=== PATIENT | female | born 1955 | race Caucasian/White ===

== ENCOUNTER 2016-10-01 11:36 | Outpatient (CLI) ==
[2015-01-12 10:47] VITALS: BMI 44.8
[2016-10-01 13:56] LABS: ALBUMIN 3.7 g/dL (3.4-5.0); ANION GAP 14.1; BUN/CREATININE RATIO 13.25; CALCIUM 9.8 mg/dL (8.2-10.2); CREATININE 0.83 mg/dL (0.60-1.30); POTASSIUM 4.1 mmol/L (3.5-5.10)
== END 2016-10-01 11:37 | disposition home or self-care (01) ==
LOC: LAB 11:36
PROVIDERS: ATTEND General Practice
DX: E11.9 Type 2 diabetes mellitus without complications (principal); I10 Essential (primary) hypertension; E78.5 Hyperlipidemia, unspecified
CPT/HCPCS: 36415; 80069; 83036

== ENCOUNTER 2017-09-10 17:15 | Outpatient (CLI) ==
[2015-01-12 10:47] VITALS: BMI 44.8
== END 2017-09-10 17:16 | disposition home or self-care (01) ==
LOC: LAB 17:15
PROVIDERS: ATTEND General Practice
DX: J02.9 Acute pharyngitis, unspecified (principal); R05 Cough; R51 Headache
CPT/HCPCS: 87651

== ENCOUNTER 2018-07-01 11:17 | Outpatient (CLI) ==
[2015-01-12 10:47] VITALS: BMI 44.8
== END 2018-07-01 11:18 | disposition home or self-care (01) ==
LOC: RHC-LAB 11:17
PROVIDERS: ATTEND General Practice
DX: E78.5 Hyperlipidemia, unspecified (principal); E11.9 Type 2 diabetes mellitus without complications; I10 Essential (primary) hypertension; G62.9 Polyneuropathy, unspecified; D12.6 Benign neoplasm of colon, unspecified; F32.9 Major depressive disorder, single episode, unspecified; Z79.899 Other long term (current) drug therapy
CPT/HCPCS: 36415; 80053; 80061; 81001; 83036; 85025; 87086; 87186

== ENCOUNTER 2018-12-27 09:47 | Emergency (ER) | payer OTHER ==
[2018-12-27 09:51] VITALS: BP 151/61; TEMP 98; BMI 40.8
[2018-12-27] MEDS ORDERED: NORCO 10-325 PO STA (10:23)
--- NOTE | 2018-12-27 11:15 | ED.PDOC ---
General ED Provider: Dr. MESHA TORRES Chief Complaint: Shoulder Pain/Injury Stated Complaint: right soulder pain neck pain tingling sensation right upper ext since december 17 when she reached back on that day and felt a pop no new injury Time Seen by Physician: 10:00 Mode of Arrival: Walk-In Information Source: Patient Exam Limitations: No limitations [facility] Nursing and Triage Documentation Reviewed and Agree: Yes Does patient meet sepsis criteria?: No System Inflammatory Response Syndrome: Not Applicable Sepsis Protocol: For patient's 13 years and over: Temp is 96.8 and below OR 101 and greater Pulse >90 BPM Resp >20/minute Acutely Altered Mental Status Are patient's symptoms suggestive of a new infection, such as: -Pneumonia -Skin, Soft Tissue -Endocarditis -UTI -Bone, Joint Infection -Implantable Device -Acute Abdominal Infection -Wound Infection -Meningitis -Blood Stream Catheter Infection -Unknown Musculoskeletal Complaint Exam - Shoulder Pain Complaint/Exam Mechanism of Injury: Reports: Other Onset/Duration: 12 days Symptoms Are: Still present Timing: Intermittent Initial Severity: Mild Current Severity: Mild Location: Reports: Discrete, Radiating (right arm ) Character: Reports: Aching Alleviating: Reports: Rest Aggravating: Reports: Movement, Lifting, Flexion, Extension, Internal rotation, External rotation Associated Signs and Symptoms: Denies: Swelling, Redness, Bruising, Fever, Weakness, Numbness, Tingling Related History: Reports: Similar episode Non-Orthopedic Risk Factors: Reports: None DVT Risk Factors: Reports: None Related Surgical History: Reports: None Shoulder Findings: Absent: Swelling, Ecchymosis, Abnormal contour, Rotation, Ligamentous instability, Laceration, Erythema, Warmth, Blisters, Foreign body, Adson's Sign Tenderness: Present: Proximal humerus, Rotator cuff muscles Limited Range of Motion: Present: Abduction, Adduction, Flexion, Extension, Internal rotation, External rotation, Rotator cuff muscles, Rotator cuff insertion Differential Diagnoses: Arthritis, Closed Fracture, Rotator Cuff Injury Review of Systems - Review Of Systems Constitutional: Reports: No symptoms Eyes: Reports: No symptoms Ears, Nose, Mouth, Throat: Reports: No symptoms Respiratory: Reports: No symptoms Cardiac: Reports: No symptoms GI: Reports: No symptoms : Reports: No symptoms Musculoskeletal: Reports: Joint pain, Neck pain Skin: Reports: No symptoms Neurological: Reports: No symptoms Endocrine: Reports: No symptoms Hematologic/Lymphatic: Reports: No symptoms All Other Systems: Reviewed and Negative Past Medical History - Past Medical History Previously Healthy: Yes Endocrine: Reports: Dyslipidemia Cardiovascular: Reports: Hypertension Respiratory: Reports: None Hematological: Reports: None Gastrointestinal: Reports: None Genitourinary: Reports: None Neuro/Psych: Reports: None Musculoskeletal: Reports: None Cancer: Reports: None Last Menstrual Period: n/a - Surgical History General Surgical History: Reports: None - Family History Family History: Reports: None - Social History Smoking Status: Current every day smoker, Former smoker Hx Substance Use: No Alcohol Screening: None Physical Exam - Physical Exam Appearance: Well-appearing, No pain distress, Well-nourished Eyes: ROMEL, EOMI, Conjunctiva clear ENT: Ears normal, Nose normal, Oropharynx normal Respiratory: Airway patent, Breath sounds clear, Breath sounds equal, Respirations nonlabored Cardiovascular: RRR, Pulses normal, No rub, No murmur GI/: Soft, Nontender, No masses, Bowel sounds normal, No Organomegaly Musculoskeletal: No edema, No calf tenderness, Limited ROM (right shoulder . sensation circulation of the right upper ext is wnl ) Skin: Warm, Dry, Normal color Neurological: Sensation intact, Motor intact, Reflexes intact, Cranial nerves intact, Alert, Oriented Psychiatric: Affect appropriate, Mood appropriate Critical Care Note - Critical Care Note Total Time (mins): 0 Course - Course Orders, Labs, Meds: Orders Category Date Time Status Hydrocodone Bit/Acetaminophen [[place] 10-325] MEDS 12/27/18 10:23 Discontinued 1 tab PO ONCE STA CT CERVICAL SPINE W/O CONTRAST Stat RADS 12/27/18 10:[address] SHOULDER RIGHT W/O CONTRAST Stat RADS 12/27/18 10:22 Taken Medications Discontinued Medications Generic Name Dose Route Start Last Admin Trade Name Freq PRN Reason Stop Dose Admin Hydrocodone Bitart/Acetaminophen 1 tab 12/27/18 10:23 12/27/18 10:34 [place] 10-325 PO 12/27/18 10:24 1 tab ONCE STA Administration Vital Signs: Temp Pulse Resp BP Pulse Ox 12/27/18 09:47 98.0 F 65 20 151/61 H 95 Departure - Departure Time of Disposition: 12:00 Disposition: HOME SELF-CARE Discharge Problem: Shoulder pain, Neck pain, Radiculopathy of cervical spine Instructions: Neck Pain (ED), Cervical Radiculopathy (ED), Shoulder Sprain (ED) , Rotator Cuff Injury (ED) Condition: Good Pt referred to PMD for follow-up: No IPMP verified?: No Additional Instructions: Please call your Family Physician as soon as possible to schedule a follow-up appointment. Allergies/Adverse Reactions: Allergies No Known Allergies Allergy (Verified 12/27/18 09:51) Home Medications: Ambulatory Orders Atenolol 100 mg PO DAILY 01/12/15 Atorvastatin Calcium [Lipitor] 40 mg PO DAILY 01/12/15 Hydrochlorothiazide 25 mg PO DAILY 01/12/15 Hydrocodone Bit/Acetaminophen [[place] 10-325] 1 each PO Q6HR #7 tablet 12/27/18 Disposition Discussed With: Patient
--- NOTE | 2018-12-27 11:21 | CT ---
EXAM: CT of the right shoulder without contrast History: Right shoulder pain. Technique: Multiplanar CT images through the right shoulder were obtained without the administration of IV contrast Findings: The visualized right lung is clear. Surrounding soft tissues demonstrate no grossly acute findings. No acute fracture or dislocation. Moderate to severe narrowing of the right AC joint with marginal s clerosis and osteophyte formation. Mild to moderate narrowing of the right glenohumeral joint with s mall osteophytes. No abnormal calcifications or radiopaque foreign bodies. Impression: 1. No acute osseous abnormality. 2. Moderate to severe osteoarthritis of the right AC joint and mild to moderate osteoarthritis of th e right glenohumeral joint
--- NOTE | 2018-12-27 11:28 | CT ---
Exam: CT cervical spine HISTORY: Pain and radiculopathy into the right arm. Reaching behind and heard a pop, pain in the ne ck and right shoulder since. Procedures: 2 mm contiguous axial images were obtained through the cervical spine without the use of contrast. Sagittal and coronal reformatted images were also created and reviewed. Findings: The cervical spine is in approximate anatomic alignment. There is mild multilevel degener ative disc and facet arthropathy with no acute fracture or listhesis. No osseous erosion or radioden se foreign body. The mastoid air cells and the visualized portions of the paranasal sinuses appear n ormally aerated. Subcentimeter lymph nodes are noted throughout the neck soft tissues, without pedro lymphadenopathy. The thyroid gland demonstrates a small coarse calcifications. Limited visualizati on of the lung apices demonstrates no pneumothorax. There is no paraspinal fluid collection. Indivi dual disc levels are evaluated as follows At C2-3 there is a mild disc bulge without central canal stenosis. Mild neural foraminal stenosis is noted on the left. At C3-4 there is a broad-based disc bulge which reduces the AP diameter of the spinal canal to 9 mm. Moderate neural foraminal stenosis is noted on the left with mild neural foraminal stenosis on the r ight. At C4-5 there is a mild disc bulge without central canal stenosis. Moderate neural foraminal stenosi s is noted on the left. At C5-6 there is a minimal disc marginal osteophyte complex without central canal stenosis or signifi cant neural foraminal stenosis. At C6-7 there is a minimal disc bulge without central spinal canal stenosis or significant neural for aminal stenosis. At C7-T1 there is a minimal disc marginal osteophyte complex without central canal stenosis or signif icant neural foraminal stenosis. Impressions: No acute fracture or listhesis in the cervical spine. Multilevel mild degenerative disc and facet arthropathy. Osseous fusion of the left C4 and C5 facets . Mild central canal stenosis to approximately 9 mm at the C3-4 level. Moderate neural foraminal stenosis on the left at C3-4 and C4-5. Mild neural foraminal stenosis on the left at C2-3 and right at C3-4. Given the history of radiculopathy, recommendation is MRI of the cervical spine to evaluate for poten tial neural impingement. Findings were faxed to the emergency department at 11:15 a.m.
== END 2018-12-27 12:04 | disposition home or self-care (01) ==
LOC: ED 09:47
DX: M25.511 Pain in right shoulder (principal); M54.2 Cervicalgia; Z72.0 Tobacco use; M54.12 Radiculopathy, cervical region
CPT/HCPCS: 99283

== ENCOUNTER 2019-02-21 09:36 | Outpatient (CLI) | payer OTHER | END 2019-02-21 09:37 | disposition home or self-care (01) | LOC: RHC-LAB 09:36 | PROVIDERS: ATTEND General Practice | DX: Z12.31 Encounter for screening mammogram for malignant neoplasm of breast (principal); F32.9 Major depressive disorder, single episode, unspecified; E78.5 Hyperlipidemia, unspecified; I10 Essential (primary) hypertension; G62.9 Polyneuropathy, unspecified; E11.9 Type 2 diabetes mellitus without complications; Z79.899 Other long term (current) drug therapy | CPT/HCPCS: 36415; 80053; 80061; 81001; 83036; 84443; 85025; 87086 ==

== ENCOUNTER 2019-02-21 10:13 | Outpatient (CLI) | END 2019-02-21 10:14 | disposition home or self-care (01) | LOC: RAD 10:13 | PROVIDERS: ATTEND General Practice | DX: Z12.31 Encounter for screening mammogram for malignant neoplasm of breast (principal); F32.9 Major depressive disorder, single episode, unspecified; E78.5 Hyperlipidemia, unspecified; I10 Essential (primary) hypertension; G62.9 Polyneuropathy, unspecified; E11.9 Type 2 diabetes mellitus without complications; Z79.899 Other long term (current) drug therapy | CPT/HCPCS: 36415; 80053; 80061; 81001; 83036; 84443; 85025; 87086 ==

== ENCOUNTER 2024-08-20 12:18 | Observation (INO) ==
--- NOTE | 2024-08-20 13:13 | ED.PDOC ---
General ED Provider: Dr. ANDREEA WALTON MD Chief Complaint: Dizziness Stated Complaint: 69 yo WF complains of dizziness this AM, "swimming" and some last week. [place] her glucose may be elevated and came into ER. Was hypotensive in ER. Had some "chest cold" for a week or so. Slight SOB. No chest pain. No fever. Slight headache. She did vomited once enroute to ER and had diarrhea this AM. No rectal bleeding. Hx of DM, HTN, COPD and stent in her heart, kidney and "abdomen" in the past. Former heavy smoker. Time Seen by Provider: 08/20/24 12:56 Mode of Arrival: Walk-In Information Source: Patient Exam Limitations: No limitations Primary Care Provider: ALICJA TUCKER APRN, FNPBC Referred to ED by: Other (self) Nursing and Triage Documentation Reviewed and Agree: Yes What is Opioid Naive?: *Opioid Naive implies the patient is not already taking opioids or not chronically receiving opioids on a daily basis. *PRN dosing is not "usually" associated with tolerance. *Patients are at higher risk of over-sedation and aspiration. What is Opioid Tolerant?: *Opioid Tolerance implies less than the expected response to an opioid. *Acquired tolerance is defined by the patient taking 60mg of oral morphine daily (or equianalgesic dose of another opioid) for 1 week or more. *Often associated with chronic pain. *May take more than usual dose to achieve desired pain control. Review of Systems Review Of Systems Constitutional: Reports Malaise, Weakness and Sweats; Denies Chills or Fever Eyes: Reports No symptoms Ears, Nose, Mouth, Throat: Reports Nose discharge Respiratory: Reports Cough and Shortness of Breath Cardiac: Reports No symptoms GI: Reports Diarrhea and Vomiting; Denies Abdominal pain or Rectal bleeding : Reports No symptoms Musculoskeletal: Denies Back pain Skin: Reports No symptoms Neurological: Reports Other (some dizziness, "swimming" ) [facility] Medical History (Updated 08/20/24 @ 17:11 by ANDREEA WALTON MD) Left renal artery stenosis I70.1 - Atherosclerosis of renal artery (ICD-10) Iliac artery stenosis, bilateral I77.1 - Stricture of artery (ICD-10) Obese E66.9 - Obesity, unspecified (ICD-10) Non-insulin dependent type 2 diabetes mellitus Will collect insulin level as well E11.9 - Type 2 diabetes mellitus without complications (ICD-10) Social History Smoking and tobacco status: Former smoker Quit date: 08/25/19 Passive smoking exposure: No Second hand smoke exposure: No Smoking risk assessment performed: No Alcohol intake: never Counseling given: No Substance use type: does not use Counseling given: No Household members: none Housing: house Lives independently: Yes Pets and animals: No History of recent travel: No Do you think of yourself as: straight/heterosexual Current gender identity: female Seatbelt use: always Working smoke detector in home: Yes Fire extinguisher in home: Yes Surgical History History of colonoscopy Mario Carol Ann on 11/10/2005 Z98.89 - Other specified postprocedural states (ICD-10) History of musculoskeletal system surgery Z98.890 - Other specified postprocedural states (ICD-10) Placement of stent Status post cholecystectomy Z90.49 - Acquired absence of other specified parts of digestive tract (ICD- 10) History of section 29 yrs ago with first child Z98.891 - History of uterine scar from previous surgery (ICD-10) Female Reproductive History Menstrual Hx Hysterectomy: No Hx Tubal Ligation: No Physical Exam Physical Exam Appearance: Reports Ill-appearing, No pain distress and Obese Ill-appearing: Moderate Pain Distress: None Eyes: Reports ROMEL and EOMI ENT: Reports Nose normal and Oropharynx normal Neck: Supple Respiratory: Reports Airway patent, Breath sounds clear and Breath sounds equal Cardiovascular: Reports RRR, Pulses normal and No rub GI/: Reports Soft, Nontender, No masses and Bowel sounds normal Musculoskeletal: Reports Normal strength, ROM intact, No edema and No calf tenderness Skin: Reports Warm and Normal color Neurological: Reports Sensation intact, Motor intact and Reflexes intact Psychiatric: Reports Affect appropriate and Mood appropriate Interpretation EKG Interpretation EKG Interpretation By: ED Physician Time of EKG #1: 13:30 Rate: Normal Rhythm: Sinus Ectopy: None [place]: NL ST Segment: Normal Interpretation: Normal EKG Course Course 08/20/24 13:36 08/20/24 13:36 Orders, Labs, Meds: Lab Review 08/20/24 08/20/24 08/20/24 13:36 15:17 16:08 WBC 12.94 H RBC 4.62 Hgb 13.4 Hct 44.5 MCV 96.3 MCH 29.0 MCHC 30.1 L RDW Coeff of Maren 13.8 Plt Count 243 Immature Gran % (Auto) 0.3 Neut % (Auto) 69.4 Lymph % (Auto) 23.2 [place] % (Auto) 6.2 Eos % (Auto) 0.6 Baso % (Auto) 0.3 Neut # (Auto) 9.0 H Lymph # (Auto) 3.0 [place] # (Auto) 0.8 Eos # (Auto) 0.1 Baso # (Auto) 0.0 Immature Gran # (Auto) 0.0 Sodium 137.1 Potassium 4.51 Chloride 102.7 Carbon Dioxide 19.5 L Anion Gap 19.41 BUN 30.2 H Creatinine 2.00 H Estimated GFR (MDRD) 25.00 BUN/Creatinine Ratio 15.10 Glucose 251.5 H Lactic Acid 4.96 H Calcium 9.15 Magnesium 1.94 Total Bilirubin 0.71 AST 23.8 ALT 22.6 Alkaline Phosphatase 109.0 Troponin I < 0.012 Total Protein 7.04 Albumin 4.03 Globulin 3.01 Albumin/Globulin Ratio 1.33 Procalcitonin 0.08 Urine Color Yellow Urine Clarity Clear Urine pH 5.0 Ur Specific [place] 1.025 Urine Protein 3+ H Urine Glucose (UA) Trace H Urine Ketones 1+ H Urine Blood Negative Urine Nitrite Negative Urine Bilirubin 1+ H Urine Urobilinogen 0.2 Ur Leukocyte Esterase Negative Ur Squamous Epith Cells 2-5 SARS CoV-2 RNA Rapid ASHER Negative 08/20/24 16:55 WBC RBC Hgb Hct MCV MCH MCHC RDW Coeff of [place] Plt Count Immature Gran % (Auto) Neut % (Auto) Lymph % (Auto) [place] % (Auto) Eos % (Auto) Baso % (Auto) Neut # (Auto) Lymph # (Auto) [place] # (Auto) Eos # (Auto) Baso # (Auto) Immature Gran # (Auto) Sodium Potassium Chloride Carbon Dioxide Anion Gap BUN Creatinine Estimated GFR (MDRD) BUN/Creatinine Ratio Glucose Lactic Acid 2.08 D Calcium Magnesium Total Bilirubin AST ALT Alkaline Phosphatase Troponin I Total Protein Albumin Globulin Albumin/Globulin Ratio Procalcitonin Urine Color Urine Clarity Urine pH Ur Specific [place] Urine Protein Urine Glucose (UA) Urine Ketones Urine Blood Urine Nitrite Urine Bilirubin Urine Urobilinogen Ur Leukocyte Esterase Ur Squamous Epith Cells SARS CoV-2 RNA Rapid ASHER Orders Category Date Time Status ADMIT OBSERVATION [PLACE PATIENT OBSERVATION] .TO ADMISSION 08/20/24 17:11 Completed MEDSURG (MONITORED BED) EKG-(ED ONLY) Stat CARDIO 08/20/24 13:06 Completed BLOOD GLUCOSE MONITORING (MED/SURG) 0630,1100,1700,2100 CARE 08/20/24 16:46 Active GIVE HS SNACK 2100 CARE 08/20/24 16:46 Active INTAKE & OUTPUT Q8HR CARE 08/20/24 16:45 Active REMINDER: Give Insulin if Needed 0630,1100,1700,2100 CARE 08/20/24 16:45 Active TELEMETRY MONITORING TELE CARE 08/20/24 17:12 Active VITAL SIGNS Q1HR CARE 08/20/24 16:45 Active ADA 1800 EMRE. DIET DIETARY 08/20/24 Dinner Ordered HS SNACK DIETARY 08/20/24 Dinner Ordered BLOOD CULTURE (ED ONLY) Stat LAB 08/20/24 13:49 Ordered CBC W/ AUTO DIFF DAILY@0600 LAB 08/21/24 06:00 Ordered CBC W/ AUTO DIFF DAILY@0600 LAB 08/22/24 06:00 Ordered CBC W/ AUTO DIFF Stat LAB 08/20/24 13:36 Completed CMP [COMPREHENSIVE METABOLIC PANEL] Stat LAB 08/20/24 13:36 Completed COMPREHENSIVE METABOLIC PANEL DAILY@0600 LAB 08/21/24 06:00 Ordered COMPREHENSIVE METABOLIC PANEL DAILY@0600 LAB 08/22/24 06:00 Ordered COVID [SARS COV-2 RNA RAPID ASHER] Stat LAB 08/20/24 16:08 Completed LACTIC ACID Stat LAB 08/20/24 13:36 Completed LACTIC ACID Stat LAB 08/20/24 16:55 Completed MAGNESIUM Stat LAB 08/20/24 13:36 Completed PROCALCITONIN Stat LAB 08/20/24 13:36 Completed RESPIRATORY PANEL 2.1 (PCR) Stat LAB 08/20/24 17:50 Ordered TROPONIN I Stat LAB 08/20/24 13:36 Completed URINALYSIS C & S IF INDICATED Stat LAB 08/20/24 15:17 Completed Acetaminophen [Tylenol] Meds 08/20/24 16:45 Active 650 mg PO Q4H PRN Insulin Regular, Human [Humulin R (10Ml)] Meds 08/20/24 16:45 Active See Protocol SUBCUT PRN PRN Ondansetron HCl/Pf [Zofran Sdv] Meds 08/20/24 15:42 Discontinued 4 mg IVP ONCE ONE Piperacillin Sodium/Tazobactam [Zosyn 3.375 gm] 3.375 Meds 08/20/24 14:32 Discontinued gm 0.9 % Sodium Chloride [Sodium Chloride 100Ml] 100 ml IV ONCE Sodium Chloride 0.9% [Sodium Chloride] 1,000 ml Meds 08/20/24 17:00 Active IV 125 mls/hr Sodium Chloride 0.9% [Sodium Chloride] 1,000 ml Meds 08/20/24 13:06 Discontinued IV BOLUS Sodium Chloride 0.9% [Sodium Chloride] 1,000 ml Meds 08/20/24 14:32 Discontinued IV BOLUS CHEST, 1V AP ONLY Stat RADS 08/20/24 13:06 Completed Medications Generic Name Dose Route Start Last Admin Trade Name Freq PRN Reason Stop Dose Admin Acetaminophen 650 mg 08/20/24 16:45 Acetaminophen 325 Mg Tablet PO Q4H PRN Mild Pain Sodium Chloride 1,000 mls @ 125 mls/hr 08/20/24 17:00 Sodium Chloride IV .Q8H ANGELIQUE Insulin Human Regular 0 unit 08/20/24 16:45 Insulin Regular, Human 100 Unit/Ml (10ml) Vial SUBCUT PRN PRN Hyperglycemia Protocol Discontinued Medications Generic Name Dose Route Start Last Admin Trade Name Freq PRN Reason Stop Dose Admin Sodium Chloride 1,000 mls @ 1,000 mls/hr 08/20/24 13:06 08/20/24 14:40 Sodium Chloride IV 08/20/24 14:05 Infused BOLUS ONE Infusion Piperacillin Sod/Tazobactam 100 mls @ 200 mls/hr 08/20/24 14:32 08/20/24 14:50 Sod 3.375 gm/ Sodium Chloride IV 08/20/24 15:01 200 mls/hr ONCE ONE Administration Sodium Chloride 1,000 mls @ 1,000 mls/hr 08/20/24 14:32 08/20/24 14:51 Sodium Chloride IV 08/20/24 15:31 1,000 mls/hr BOLUS ONE Administration Ondansetron HCl 4 mg 08/20/24 15:42 08/20/24 16:24 Ondansetron Hcl/Pf 4 Mg/2 Ml Sdv IVP 08/20/24 15:43 4 mg ONCE ONE Administration Vital Signs: Temp Pulse Resp BP Pulse Ox 08/20/24 12:32 97.2 F L 64 18 78/41 L 96 Physician Progress Note: Discussed case the hospitalist, Juan R, and will admit OBS. Antibiotic given and had at least a couple of liters of IV Fluid. Discharge Plan Discharge Patient Disposition: PLACED OBSERVATION Discharge Problem: Acute kidney injury, Hypotensive episode, Hyperglycemia Did you review [place] for ALL controlled substances?: Not Applicable ED Provider: ANDREEA WALTON Condition: Fair [place] Coma Scale Essie Coma Scale Response Scores: Best Response = 15 Comatose Client = 8 or Less Totally Unresponsive = 3
[2024-08-20] MEDS: SODIUM CHLORIDE 1,000 ML IV ONE ×2 (13:15→14:51)
[2024-08-20 13:39] LABS: BASOPHILS % (AUTO) 0.3 % (0.0-3.0); EOSINOPHILS # (AUTO) 0.1 K/ul (0.0-0.7); EOSINOPHILS % (AUTO) 0.6 % (0.0-7.0); HEMATOCRIT 44.5 % (37.0-47.0); HEMOGLOBIN 13.4 g/dl (12.0-16.0); IMMATURE GRANULOCYTE % (AUTO) 0.3 % (0.0-5.0); LYMPHOCYTES % (AUTO) 23.2 (10.0-50.0); MEAN CORPUSCULAR HGB CONC 30.1 (31.8-35.4); MEAN CORPUSCULAR VOLUME 96.3 fl (81.0-99.0); MONOCYTES # (AUTO) 0.8 K/uL (0.4-2.0); MONOCYTES % (AUTO) 6.2 (0-10); NEUTROPHILS % (AUTO) 69.4 % (42.2-75.2); PLATELET COUNT 243 10^3/uL (140-440); RDW COEFFICIENT OF VARIATION 13.8 % (11.6-14.8); RED BLOOD COUNT 4.62 10^6/ul (4.20-5.40); WHITE BLOOD COUNT 12.94 K/ul (4.6-10.2)
[2024-08-20 13:59] LABS: ALANINE AMINOTRANSFERASE 22.6 U/L (0-35); ALBUMIN 4.03 g/dL (3.5-5.0); ASPARTATE AMINO TRANSFERASE 23.8 U/L (14-36); BILIRUBIN,TOTAL 0.71 mg/dL (0.2-1.3); BLOOD UREA NITROGEN 30.2 mg/dL (7-17); CALCIUM 9.15 mg/dL (8.4-10.2); CARBON DIOXIDE 19.5 mmol/L (22-30.0); CHLORIDE 102.7 mmol/L (98-107); GLUCOSE 251.5 mg/dL (74-106); MAGNESIUM 1.94 mg/dL (1.6-2.3); POTASSIUM 4.51 mmol/L (3.5-5.1); SODIUM 137.1 mmol/L (134.5-145); TOTAL PROTEIN 7.04 g/dL (6.3-8.2)
[2024-08-20 14:30] LABS: TROPONIN I < 0.012 ng/ml (0.0000-0.120)
--- NOTE | 2024-08-20 14:49 | DI ---
EXAM: FRONTAL VIEW OF THE CHEST. HISTORY: Hypotension. COMPARISON: Chest radiograph 05/29/2023. FINDINGS: Atherosclerotic calcifications of the aorta. Normal heart size. Chronic asymmetric elevation of the right hemidiaphragm. No acute airspace consolidation. No visible pleural effusion or pneumothorax. No acute osseous abnormality. Degenerative changes of the spine and shoulders. Mild dextroconvex tho racic spinal curvature. IMPRESSION: No acute finding in the chest. Chronic asymmetric elevation right hemidiaphragm. Calcified atherosclerosis.
[2024-08-20] MEDS: ZOSYN 3.375 GM 3.375 GM in SODIUM CHLORIDE 100ML 100 ML IV ONE (14:50)
[2024-08-20 15:25] LABS: BILIRUBIN,URINE 1+ (NEGATIVE); CLARITY,URINE Clear (CLEAR); COLOR,URINE Yellow (YELLOW); GLUCOSE, URINE (UA) Trace (NEGATIVE); KETONES,URINE 1+ (NEGATIVE); LEUKOCYTE ESTERASE ,URINE Negative (NEGATIVE); NITRITE,URINE Negative (NEGATIVE); PROTEIN,URINE 3+ (NEGATIVE); URINE, BLOOD Negative (NEGATIVE); UROBILINOGEN,URINE 0.2 (0.2)
[2024-08-20] MEDS: ZOFRAN SDV IVP ONE (16:24)
[2024-08-20 16:33] LABS: SARS COV-2 RNA RAPID NAAT NEGATIVE (NEGATIVE)
[2024-08-20 17:55] LABS: BORDETELLA PARAPERTUSSIS (PCR) NOT DETECTED (NOT DETECT); BORDETELLA PERTUSSIS (PCR) NOT DETECTED (NOT DETECT); CHLAMYDIA PNEUMONIAE (PCR) NOT DETECTED (NOT DETECT); CORONAVIRUS 229E (PCR) NOT DETECTED (NOT DETECT); CORONAVIRUS HKU1 (PCR) NOT DETECTED (NOT DETECT); CORONAVIRUS NL63 (PCR) NOT DETECTED (NOT DETECT); CORONAVIRUS OC43 (PCR) NOT DETECTED (NOT DETECT); HUMAN METAPNEUMOVIRUS (PCR) NOT DETECTED (NOT DETECT); INFLUENZA B (PCR) NOT DETECTED (NOT DETECT); MYCOPLASMA PNEUMONIAE (PCR) NOT DETECTED (NOT DETECT); PARAINFLUENZA VIRUS 1 (PCR) NOT DETECTED (NOT DETECT); PARAINFLUENZA VIRUS 2 (PCR) NOT DETECTED (NOT DETECT); PARAINFLUENZA VIRUS 3 (PCR) NOT DETECTED (NOT DETECT); PARAINFLUENZA VIRUS 4 (PCR) NOT DETECTED (NOT DETECT); RESPIRATORY SYNCYTIAL V (PCR) NOT DETECTED (NOT DETECT); SARS_COV_2 (PCR) NOT DETECTED (NOT DETECT)
[2024-08-20] MEDS: SODIUM CHLORIDE 1,000 ML IV SCH (18:03)
[2024-08-20] MEDS: HUMULIN R (10ML) SUBCUT PRN (18:12)
[2024-08-20 18:20] VITALS: BMI 44.8
[2024-08-20 18:45] LABS: ADENOVIRUS (PCR) NOT DETECTED (NOT DETECT); HUMAN RHINOVIRUS/ENTEROV (PCR) DETECTED (NOT DETECT)
[2024-08-20] MEDS ORDERED: NEURONTIN PO PRN (20:09)
[2024-08-20] MEDS ORDERED: VENTOLIN HFA IH PRN (20:09)
[2024-08-20] MEDS: SYMBICORT 160-4.5 MCG INHALER IH SCH (21:35)
[2024-08-21 05:24] LABS: BASOPHILS % (AUTO) 0.3 % (0.0-3.0); EOSINOPHILS # (AUTO) 0.1 K/ul (0.0-0.7); EOSINOPHILS % (AUTO) 0.7 % (0.0-7.0); HEMATOCRIT 40.5 % (37.0-47.0); HEMOGLOBIN 12.1 g/dl (12.0-16.0); IMMATURE GRANULOCYTE % (AUTO) 0.3 % (0.0-5.0); LYMPHOCYTES # (AUTO) 2.5 K/uL (0.60-3.4); MEAN CORPUSCULAR HEMOGLOBIN 28.9 pg (27.0-31.0); MEAN CORPUSCULAR HGB CONC 29.9 (31.8-35.4); MEAN CORPUSCULAR VOLUME 96.9 fl (81.0-99.0); MONOCYTES # (AUTO) 0.6 K/uL (0.4-2.0); MONOCYTES % (AUTO) 6.1 (0-10); NEUTROPHILS # (AUTO) 6.3 K/ul (2.0-6.9); NEUTROPHILS % (AUTO) 66.6 % (42.2-75.2); PLATELET COUNT 204 10^3/uL (140-440); RDW COEFFICIENT OF VARIATION 13.9 % (11.6-14.8); RED BLOOD COUNT 4.18 10^6/ul (4.20-5.40); WHITE BLOOD COUNT 9.44 K/ul (4.6-10.2)
[2024-08-21 05:40] LABS: ALANINE AMINOTRANSFERASE 20.2 U/L (0-35); ALBUMIN 3.31 g/dL (3.5-5.0); ASPARTATE AMINO TRANSFERASE 22.4 U/L (14-36); BILIRUBIN,TOTAL 0.29 mg/dL (0.2-1.3); BLOOD UREA NITROGEN 32.6 mg/dL (7-17); CALCIUM 8.36 mg/dL (8.4-10.2); CARBON DIOXIDE 23.8 mmol/L (22-30.0); GLUCOSE 202.2 mg/dL (74-106); POTASSIUM 4.19 mmol/L (3.5-5.1); SODIUM 138.7 mmol/L (134.5-145); TOTAL PROTEIN 6.27 g/dL (6.3-8.2)
[2024-08-21 05:50] LABS: CREATININE 1.42 mg/dL (0.60-1.30)
[2024-08-21] MEDS: TYLENOL PO PRN (08:08)
[2024-08-21] MEDS: PLAVIX PO SCH (08:10)
[2024-08-21] MEDS: CELEXA PO SCH (08:10)
[2024-08-21] MEDS: LIPITOR PO SCH (08:11)
[2024-08-21] MEDS: SPIRIVA IH SCH (08:17)
[2024-08-21] MEDS: NEURONTIN PO PRN ×2 (08:18)
--- NOTE | 2024-08-21 12:56 | PCM ---
Date of Service Date Seen by Provider: 08/21/24 Time Seen by Provider: 08:30 Admit Day/Time Admission Date: 08/20/24 Reason for Admission Chief Complaint: Orthostatic Hypotension Hospital Provider Hospital Provider: TARCY FULLER, [facility] Primary Care Physician Primary Care Physician: ALICJA TUCKER APRN,[facility] History of Present Illness History of Present Illness: 69 yo female with pmh of HTN, HLD, DM2, and COPD presented to the ER with complaints of dizziness. States she has had intermittent dizziness on standing over the past 2 weeks. Reports it was initially occurring when she stood up and then would resolve. Yesterday upon standing she would become dizzy and continued to stay dizzy. Denies any fever, chest pain, sob, palpitations, or other accompanying symptoms. Upon arrival to the ER, BP was 70s/40s. She was given 2L of fluids with mild improvement up to 90s/50s. Labs showed mild leukocytosis and REMY. Admitted to med/surg obseration. Case Discussed With Case Discussed With: Patient's case was discussed with the ER Physicians, Dr. Manzanares. [facility] Medical History Left renal artery stenosis I70.1 - Atherosclerosis of renal artery (ICD-10) Iliac artery stenosis, bilateral I77.1 - Stricture of artery (ICD-10) Obese E66.9 - Obesity, unspecified (ICD-10) Non-insulin dependent type 2 diabetes mellitus Will collect insulin level as well E11.9 - Type 2 diabetes mellitus without complications (ICD-10) Surgical History History of colonoscopy Mariotoñito Maharaj on 11/10/2005 Z98.89 - Other specified postprocedural states (ICD-10) History of musculoskeletal system surgery Z98.890 - Other specified postprocedural states (ICD-10) Placement of stent Status post cholecystectomy Z90.49 - Acquired absence of other specified parts of digestive tract (ICD- 10) History of section 29 yrs ago with first child Z98.891 - History of uterine scar from previous surgery (ICD-10) Family History FATHER Lung cancer Mother Breast cancer Mother Diabetes Social History Smoking and tobacco status: Former smoker Quit date: 08/25/19 Passive smoking exposure: No Second hand smoke exposure: No Smoking risk assessment performed: No Alcohol intake: never Counseling given: No Substance use type: does not use Counseling given: No Household members: none Housing: house Lives independently: Yes Pets and animals: No History of recent travel: No Do you think of yourself as: straight/heterosexual Current gender identity: female Seatbelt use: always Working smoke detector in home: Yes Fire extinguisher in home: Yes Allergies Allergies Allergy/AdvReac Type Severity Reaction Status Date / Time empagliflozin (From AdvReac Intermediate severe Verified 08/20/24 12:32 Jardiance) yeast infection Current Medications Home Medications lancets #100 ea 05/20/23 [Rx Confirmed 08/20/24 Last Taken Unknown] metformin 1,000 mg tablet See Rx Instructions .Route .COMPLEX #180 tabs 03/30/24 [Rx Confirmed 08/20/24 Last Taken 08/20/24] blood-glucose meter (Simpirica Spineuch Ultra2 Meter) #1 ea 06/01/24 [Rx Confirmed 08/20/24 Last Taken Unknown] albuterol sulfate 90 mcg/actuation aerosol inhaler 2 puff PO Q4-6H PRN for wheezing #9 grams 06/04/24 [Rx Confirmed 08/20/24 Last Taken 08/19/24] blood sugar diagnostic (OneTouch Ultra Test strips) #100 ea 06/13/24 [Rx Confirmed 08/20/24 Last Taken Unknown] atenolol 100 mg tablet See Rx Instructions .Route .COMPLEX #90 tabs 06/28/24 [Rx Confirmed 08/20/24 Last Taken 08/20/24] atorvastatin 80 mg tablet See Rx Instructions .Route .COMPLEX #90 tabs 06/28/24 [Rx Confirmed 08/20/24 Last Taken 08/20/24] budesonide 160 mcg-glycopyr 9 mcg-formot 4.8 mcg/actuation HFA inhaler (Breztri Aerosphere) 2 inh inhalation BID moderate COPD #10.7 grams 06/28/24 [Rx Confirmed 08/20/24 Last Taken 08/19/24] canagliflozin 300 mg tablet (Invokana) 300 mg PO QAM #90 tabs 06/28/24 [Rx Confirmed 08/20/24 Last Taken 08/20/24] citalopram 20 mg tablet See Rx Instructions .Route .COMPLEX #90 tabs 06/28/24 [Rx Confirmed 08/20/24 Last Taken 08/20/24] clopidogrel 75 mg tablet See Rx Instructions .Route .COMPLEX #90 tabs 06/28/24 [Rx Confirmed 08/20/24 Last Taken 08/20/24] ergocalciferol (vitamin D2) 1,250 mcg (50,000 unit) capsule (Vitamin D2) 1,250 mcg PO QWEEK 3 months #13 caps 06/28/24 [Rx Confirmed 08/20/24 Last Taken 08/19/24] hydrochlorothiazide 25 mg tablet See Rx Instructions .Route .COMPLEX #90 tabs 06/28/24 [Rx Confirmed 08/20/24 Last Taken 08/20/24] lisinopril 20 mg tablet 20 mg PO QDAY #90 tabs 06/28/24 [Rx Confirmed 08/20/24 Last Taken 08/20/24] semaglutide 14 mg tablet 14 mg PO QDAY #90 tabs 06/28/24 [Rx Confirmed 08/20/24 Last Taken 08/20/24] lancets 30 gauge (OneTouch UltraSoft 2 Lancet) #100 ea 06/30/24 [Rx Confirmed 08/20/24 Last Taken Unknown] gabapentin 800 mg tablet 800 mg PO TID PRN neuropathy 08/20/24 [History Confirmed 08/20/24 Last Taken 08/19/24] Home Acetaminophen (Acetaminophen 325 Mg Tablet) 650 mg PO Q4H PRN PRN Reason: Mild Pain Last Admin: 08/21/24 08:08 Dose: 650 mg Albuterol Sulfate (Albuterol Sulfate 8 Gm Inhaler) 2 puff IH Q4-6H PRN PRN Reason: Wheezing Atorvastatin Calcium (Atorvastatin Calcium 20 Mg Tablet) 80 mg PO DAILY [facility] Last Admin: 08/21/24 08:11 Dose: 80 mg Budesonide/Formoterol Fumarate (Budesonide/Formoterol Fumarate 160/4.5 Mcg Inhaler) 2 puff IH BID [facility] Last Admin: 08/21/24 08:11 Dose: 2 puff Citalopram Hydrobromide (Citalopram Hydrobromide 20 Mg Tablet) 20 mg PO DAILY [facility] Last Admin: 08/21/24 08:10 Dose: 20 mg Clopidogrel Bisulfate (Clopidogrel Bisulfate 75 Mg Tablet) 75 mg PO DAILY [facility] Last Admin: 08/21/24 08:10 Dose: 75 mg Gabapentin (Gabapentin 100 Mg Capsule) 200 mg PO TID PRN PRN Reason: neuropathy Last Admin: 08/21/24 08:18 Dose: 200 mg Gabapentin (Gabapentin 300 Mg Capsule) 600 mg PO TID PRN PRN Reason: neuropathy Last Admin: 08/21/24 08:18 Dose: 600 mg Sodium Chloride (Sodium Chloride) 1,000 mls @ 125 mls/hr IV .Q8H [facility] Last Admin: 08/21/24 09:36 Dose: 125 mls/hr Insulin Human Regular (Insulin Regular, Human 100 Unit/Ml (10ml) Vial) 0 unit SUBCUT PRN PRN; Protocol PRN Reason: Hyperglycemia Last Admin: 08/21/24 11:50 Dose: 4 unit Tiotropium [place] (Tiotropium [place] 18 Mcg Cap.W.Dev) 1 cap IH DAILY [facility] Last Admin: 08/21/24 08:17 Dose: 1 cap Discontinued Medications Sodium Chloride (Sodium Chloride) 1,000 mls @ 1,000 mls/hr IV BOLUS ONE Stop: 08/20/24 14:05 Last Infusion: 08/20/24 14:40 Dose: Infused Piperacillin Sod/Tazobactam (Sod 3.375 gm/ Sodium Chloride) 100 mls @ 200 mls/hr IV ONCE ONE Stop: 08/20/24 15:01 Last Admin: 08/20/24 14:50 Dose: 200 mls/hr Sodium Chloride (Sodium Chloride) 1,000 mls @ 1,000 mls/hr IV BOLUS ONE Stop: 08/20/24 15:31 Last Admin: 08/20/24 14:51 Dose: 1,000 mls/hr Ondansetron HCl (Ondansetron Hcl/Pf 4 Mg/2 Ml Sdv) 4 mg IVP ONCE ONE Stop: 08/20/24 15:43 Last Admin: 08/20/24 16:24 Dose: 4 mg Opioid Naive vs. Tolerant Does Patient Take Opioids?: No Is Patient Opioid Naive?: Yes What is Opioid Naive?: *Opioid Naive implies the patient is not already taking opioids or not chronically receiving opioids on a daily basis. *PRN dosing is not "usually" associated with tolerance. *Patients are at higher risk of over-sedation and aspiration. Is Patient Opioid Tolerant?: No What is Opioid Tolerant?: *Opioid Tolerance implies less than the expected response to an opioid. *Acquired tolerance is defined by the patient taking 60mg of oral morphine daily (or equianalgesic dose of another opioid) for 1 week or more. *Often associated with chronic pain. *May take more than usual dose to achieve desired pain control. Review of Systems Constitutional: Reports No symptoms Head: Reports Normocephalic Eyes: Reports No symptoms Ears: Reports No symptoms Nose: Reports No symptoms Mouth: Reports No symptoms Throat: Reports No symptoms Cardiovascular: Reports No symptoms Respiratory: Reports No symptoms Gastrointestinal: Reports No symptoms Genitourinary: Reports No Symptoms Musculoskeletal: Reports No symptoms Endocrine: Reports No symptoms Hematology: Reports No symptoms Immunology: Reports No symptoms Neurological: Reports Dizziness Psychiatric: Reports No symptoms Physical examination Most Recent Vital Signs: Most Recent Vital Signs Temperature 97.7 F 08/21/24 10:00 Temperature Source Temporal Artery Scan 08/21/24 10:00 Temperature Source Temporal Artery Scan 08/20/24 12:32 Pulse Rate 65 08/21/24 10:00 Respiratory Rate 16 08/21/24 10:00 Blood Pressure 124/46 L 08/21/24 10:00 Blood Pressure Mean 72 08/21/24 10:00 Blood Pressure Right Arm 66/46 08/20/24 17:55 Blood Pressure Location Left Arm 08/21/24 10:00 Blood Pressure Position Supine 08/21/24 08:40 O2 Sat by Pulse Oximetry 94 L 08/21/24 10:00 Oxygen Delivery Method Room Air 08/21/24 12:00 Height 5 ft 6 in 08/20/24 17:55 Weight 126 kg 08/20/24 17:58 Telemetry Type Remote Telemetry 08/21/24 07:00 Telemetry Monitoring Continues 08/21/24 07:00 Telemetry Heart Rate 64 08/21/24 07:00 Telemetry SPO2 93 12/23/22 11:37 EKG MA Interval 0.15 08/21/24 07:00 EKG QRS Interval 0.07 08/21/24 07:00 Telemetry Strip Reading NSR 08/21/24 07:00 Appearance: Positive No Apparent Distress, Alert and Oriented x3 and Obese Skin: Positive Warm and Good Turgor HEENT: Positive Normocephalic and PERRLA Neck: Positive Supple and Midline Trachea Chest/Lungs: Positive Symmetrical With Equal Breath Sounds, Clear to Auscultation Bilaterally and Good Air Movement all 4 Lung [place] Heart: Positive RRR and Pulses Normal GI/: Positive Soft, Nontender, Bowel Sounds Normal and No Distention Musculoskeletal: Positive Not Examined Extremities: Positive Intact Peripheral Pulses, Stable Joints Without Laxity and Good ROM in All Joints Neurological: Positive Sensation Intact, Motor intact, Alert, Oriented and Muscle Strength 5/5 in Upper and Lower Extremities Bilaterally Psychiatric: Positive Oriented x4, Appropriate Mood, Appropriate Affect, Intact Memory, Good Short-Term Recall, Good Long-Term Recall, Normal Judgement and Normal Insight Labs This Visit Labs This Visit: Labs This Visit 08/20/24 08/20/24 08/20/24 13:36 15:17 16:08 WBC 12.94 H RBC 4.62 Hgb 13.4 Hct 44.5 MCV 96.3 MCH 29.0 MCHC 30.1 L RDW Coeff of Maren 13.8 Plt Count 243 Immature Gran % (Auto) 0.3 Neut % (Auto) 69.4 Lymph % (Auto) 23.2 [place] % (Auto) 6.2 Eos % (Auto) 0.6 Baso % (Auto) 0.3 Neut # (Auto) 9.0 H Lymph # (Auto) 3.0 [place] # (Auto) 0.8 Eos # (Auto) 0.1 Baso # (Auto) 0.0 Immature Gran # (Auto) 0.0 Sodium 137.1 Potassium 4.51 Chloride 102.7 Carbon Dioxide 19.5 L Anion Gap 19.41 BUN 30.2 H Creatinine 2.00 H Estimated GFR (MDRD) 25.00 BUN/Creatinine Ratio 15.10 Glucose 251.5 H Lactic Acid 4.96 H Calcium 9.15 Magnesium 1.94 Total Bilirubin 0.71 AST 23.8 ALT 22.6 Alkaline Phosphatase 109.0 Troponin I < 0.012 Total Protein 7.04 Albumin 4.03 Globulin 3.01 Albumin/Globulin Ratio 1.33 Procalcitonin 0.08 Urine Color Yellow Urine Clarity Clear Urine pH 5.0 Ur Specific [place] 1.025 Urine Protein 3+ H Urine Glucose (UA) Trace H Urine Ketones 1+ H Urine Blood Negative Urine Nitrite Negative Urine Bilirubin 1+ H Urine Urobilinogen 0.2 Ur Leukocyte Esterase Negative Ur Squamous Epith Cells 2-5 Adenovirus (PCR) B. pertussis DNA (PCR) B.parapertussis DNA PCR C. pneumoniae DNA (PCR) Coronavirus OC43 (PCR) Coronavirus HKU1 (PCR) Coronavirus 229E (PCR) Coronavirus NL63 (PCR) Human Metapneumovir PCR Influenza Type A (PCR) Influenza B (RT-PCR) M. pneumoniae (PCR) Parainfluenza 1 (PCR) Parainfluenza 2 (PCR) Parainfluenza 3 (PCR) Parainfluenza 4 (PCR) RSV (PCR) Entero/Rhino (PCR) SARS-CoV-2 (PCR) SARS CoV-2 RNA Rapid ASHER Negative 08/20/24 08/20/24 08/21/24 16:55 17:49 05:03 WBC 9.44 RBC 4.18 L Hgb 12.1 Hct 40.5 MCV 96.9 MCH 28.9 MCHC 29.9 L RDW Coeff of Maren 13.9 Plt Count 204 Immature Gran % (Auto) 0.3 Neut % (Auto) 66.6 Lymph % (Auto) 26.0 [place] % (Auto) 6.1 Eos % (Auto) 0.7 Baso % (Auto) 0.3 Neut # (Auto) 6.3 Lymph # (Auto) 2.5 [place] # (Auto) 0.6 Eos # (Auto) 0.1 Baso # (Auto) 0.0 Immature Gran # (Auto) 0.0 Sodium 138.7 Potassium 4.19 Chloride 106.0 Carbon Dioxide 23.8 Anion Gap 13.09 BUN 32.6 H Creatinine 1.42 H D Estimated GFR (MDRD) 37.00 BUN/Creatinine Ratio 22.95 Glucose 202.2 H Lactic Acid 2.08 D Calcium 8.36 L Magnesium Total Bilirubin 0.29 AST 22.4 ALT 20.2 Alkaline Phosphatase 120.0 Troponin I Total Protein 6.27 L Albumin 3.31 L Globulin 2.96 Albumin/Globulin Ratio 1.11 Procalcitonin Urine Color Urine Clarity Urine pH Ur Specific [place] Urine Protein Urine Glucose (UA) Urine Ketones Urine Blood Urine Nitrite Urine Bilirubin Urine Urobilinogen Ur Leukocyte Esterase Ur Squamous Epith Cells Adenovirus (PCR) Not detected B. pertussis DNA (PCR) Not detected B.parapertussis DNA PCR Not detected C. pneumoniae DNA (PCR) Not detected Coronavirus OC43 (PCR) Not detected Coronavirus HKU1 (PCR) Not detected Coronavirus 229E (PCR) Not detected Coronavirus NL63 (PCR) Not detected Human Metapneumovir PCR Not detected Influenza Type A (PCR) Not detected Influenza B (RT-PCR) Not detected M. pneumoniae (PCR) Not detected Parainfluenza 1 (PCR) Not detected Parainfluenza 2 (PCR) Not detected Parainfluenza 3 (PCR) Not detected Parainfluenza 4 (PCR) Not detected RSV (PCR) Not detected Entero/Rhino (PCR) Detected H SARS-CoV-2 (PCR) Not detected SARS CoV-2 RNA Rapid ASHER Microbiology This Visit 08/20/24 13:49 Blood Blood Culture - Preliminary Imaging Imaging: EXAM: FRONTAL VIEW OF THE CHEST FINDINGS: Atherosclerotic calcifications of the aorta. Normal heart size. Chronic asymmetric elevation of the right hemidiaphragm. No acute airspace consolidation. No visible pleural effusion or pneumothorax. No acute osseous abnormality. Degenerative changes of the spine and shoulders. Mild dextroconvex thoracic spinal curvature. IMPRESSION: No acute finding in the chest. Chronic asymmetric elevation right hemidiaphragm. Calcified atherosclerosis. Review Statement Review Statement: I have independently reviewed and interpreted the labs/EKGs/imaging that were ordered by the ER provider. I have reviewed all outside records that are available currently in our EMR including imaging/notes/labs from previous visits. Plan Plan: 1. Orthostatic Hypotension in setting of REMY - NS@125mL/hr, orthostats Q8H, telemetry 2. REMY stage 1 - NS@125mL/hr, avoid nephrotoxins/hypotension, hold antihypertensives 3. Lactic Acidosis - likely due to above, trend and monitor 4. Hypertension - chronic, hold home medications due to above 5. DM2 - chronic, hold oral agents, ADA diet, accuchecks qid with ssi 6. COPD - chronic, not in exacerbation, continue home inhalers 7. Hyperlipidemia - chronic, continue home medications DVT Prophylaxis: Ambulation Time Spent: Greater than 80 minutes spent with patient, 50% of the time spent with this patient was devoted to counseling and coordination of care. [facility] minutes spent discussing advance care planning. Disposition: Admit to: Med/surg Observation Full Code Discussed Plan of Care with Dr. Gianni Murrieta. Medications Medication Orders: Medications Ordered Category Date Time Status Acetaminophen [Tylenol] Meds 08/20/24 16:45 Active 650 mg PO Q4H PRN Albuterol Sulfate [Ventolin Hfa] Meds 08/20/24 20:09 Active 2 puff IH Q4-6H PRN Atorvastatin Calcium [Lipitor] Meds 08/21/24 09:00 Active 80 mg PO DAILY Budesonide/Formoterol Fumarate [Symbicort 160-4.5 Mcg Meds 08/20/24 21:00 Active Inhaler] 2 puff IH BID Citalopram Hydrobromide [Celexa] Meds 08/21/24 09:00 Active 20 mg PO DAILY Clopidogrel Bisulfate [Plavix] Meds 08/21/24 09:00 Active 75 mg PO DAILY Gabapentin [Neurontin] Meds 08/21/24 07:10 Active 200 mg PO TID PRN Gabapentin [Neurontin] Meds 08/21/24 07:10 Active 600 mg PO TID PRN Insulin Regular, Human [Humulin R (10Ml)] Meds 08/20/24 16:45 Active See Protocol SUBCUT PRN PRN Sodium Chloride 0.9% [Sodium Chloride] 1,000 ml Meds 08/20/24 17:00 Active IV 125 mls/hr Tiotropium [place] [Spiriva] Meds 08/21/24 09:00 Active 1 cap IH DAILY
[2024-08-22 05:36] LABS: BASOPHILS % (AUTO) 0.1 % (0.0-3.0); EOSINOPHILS # (AUTO) 0.1 K/ul (0.0-0.7); EOSINOPHILS % (AUTO) 1.1 % (0.0-7.0); HEMATOCRIT 35.7 % (37.0-47.0); HEMOGLOBIN 10.9 g/dl (12.0-16.0); IMMATURE GRANULOCYTE % (AUTO) 0.1 % (0.0-5.0); LYMPHOCYTES # (AUTO) 2.3 K/uL (0.60-3.4); LYMPHOCYTES % (AUTO) 31.2 (10.0-50.0); MEAN CORPUSCULAR HEMOGLOBIN 29.7 pg (27.0-31.0); MEAN CORPUSCULAR HGB CONC 30.5 (31.8-35.4); MEAN CORPUSCULAR VOLUME 97.3 fl (81.0-99.0); MONOCYTES # (AUTO) 0.5 K/uL (0.4-2.0); MONOCYTES % (AUTO) 6.6 (0-10); NEUTROPHILS # (AUTO) 4.5 K/ul (2.0-6.9); NEUTROPHILS % (AUTO) 60.9 % (42.2-75.2); PLATELET COUNT 169 10^3/uL (140-440); RDW COEFFICIENT OF VARIATION 13.6 % (11.6-14.8); RED BLOOD COUNT 3.67 10^6/ul (4.20-5.40); WHITE BLOOD COUNT 7.37 K/ul (4.6-10.2)
[2024-08-22 05:38] LABS: ALANINE AMINOTRANSFERASE 18.2 U/L (0-35); ALBUMIN 2.9 g/dL (3.5-5.0); ALKALINE PHOSPHATASE 118.6 U/L (53-141); ASPARTATE AMINO TRANSFERASE 21.5 U/L (14-36); BILIRUBIN,TOTAL 0.13 mg/dL (0.2-1.3); BLOOD UREA NITROGEN 21.1 mg/dL (7-17); CALCIUM 8.69 mg/dL (8.4-10.2); CARBON DIOXIDE 25.4 mmol/L (22-30.0); CHLORIDE 109.4 mmol/L (98-107); CREATININE 0.98 mg/dL (0.60-1.30); GLUCOSE 160.2 mg/dL (74-106); POTASSIUM 5.08 mmol/L (3.5-5.1); SODIUM 138.7 mmol/L (134.5-145); TOTAL PROTEIN 5.69 g/dL (6.3-8.2)
--- NOTE | 2024-08-22 09:45 | DCSUM ---
Admission Date Admission Date: 08/20/24 Discharge Date Discharge Date: 08/22/24 Admission Diagnosis Admission Diagnosis: 1. Orthostatic Hypotension in setting of REMY 2. REMY stage 1 3. Lactic Acidosis Discharge Diagnosis Discharge Diagnosis: 1. Orthostatic Hypotension in setting of REMY - resolved 2. REMY stage 1- resolved 3. Lactic Acidosis - resolved 4. Hypertension - chronic 5. DM2 - chronic 6. COPD - chronic 7. Hyperlipidemia - chronic Hospital Provider Hospital Provider: Jose Guadalupe Baker PA-C, [facility] Primary Care Physician Primary Care Physician: ALICJA TUCKER APRN,[facility] Summary of History and Physical Summary of History and Physical: 69 yo female with pmh of HTN, HLD, DM2, and COPD presented to the ER with complaints of dizziness. States she has had intermittent dizziness on standing over the past 2 weeks. Reports it was initially occurring when she stood up and then would resolve. Yesterday upon standing she would become dizzy and continued to stay dizzy. Denies any fever, chest pain, sob, palpitations, or other accompanying symptoms. Upon arrival to the ER, BP was 70s/40s. She was given 2L of fluids with mild improvement up to 90s/50s. Labs showed mild leukocytosis and REMY. Admitted to med/surg obseration. Hospital Course Subjective: Patient tested positive for rhinovirus. Otherwise cxr and UA negative for infection. She states she had n/v/d as well prior to arrival. Likely worsened her BP and REMY. She has since done well, no n/v/d. Her BP meds were held. She was given fluids. Orthostatic hypotension resolevd. Advised restarting all meds as previously prescribed except cutting hctz down to 12.5 mg. Monitor BP for the next week, if systolic >130 consistently, take the full tablet as originally prescribed. Cr back to baseline. Patient wishing to go home. Patient agreed to plan of care. Of note blood cultures positive for gram positive cocci. Spoke with micro who states it looks like contaminant. Pt has no s&sx of infection at this time, nontoxic appearing, labs unremarkable. Appearance: Pleasant, No Apparent Distress and Alert HEENT: MMM and Supple CVS: No Murmur Abdomen: Soft, Non-Tender and No Distention Respiratory: No Accessory Muscle Use Extremities: No Edema Vital Signs: Most Recent Vital Signs Temperature 97.3 F L 08/22/24 05:13 Temperature Source Temporal Artery Scan 08/22/24 05:13 Temperature Source Temporal Artery Scan 08/20/24 12:32 Pulse Rate 83 08/22/24 05:14 Respiratory Rate 16 08/22/24 05:13 Blood Pressure 129/97 H 08/22/24 05:14 Blood Pressure Mean 114 08/22/24 05:13 Blood Pressure Right Arm 66/46 08/20/24 17:55 Blood Pressure Location Left Arm 08/22/24 05:14 Blood Pressure Position Standing 08/22/24 05:14 O2 Sat by Pulse Oximetry 95 08/22/24 05:13 Oxygen Delivery Method Room Air 08/22/24 09:00 Height 5 ft 6 in 08/20/24 17:55 Weight 126 kg 08/20/24 17:58 Telemetry Type Remote Telemetry 08/22/24 07:00 Telemetry Monitoring Continues 08/22/24 07:00 Telemetry Heart Rate 70 08/22/24 07:00 Telemetry SPO2 93 12/23/22 11:37 EKG [place] Interval 0.17 08/22/24 07:00 EKG QRS Interval 0.05 L 08/22/24 07:00 Telemetry Strip Reading SR 08/22/24 07:00 Imaging: EXAM: FRONTAL VIEW OF THE CHEST. HISTORY: Hypotension. COMPARISON: Chest radiograph 05/29/2023. FINDINGS: Atherosclerotic calcifications of the aorta. Normal heart size. Chronic asymmetric elevation of the right hemidiaphragm. No acute airspace consolidation. No visible pleural effusion or pneumothorax. No acute osseous abnormality. Degenerative changes of the spine and shoulders. Mild dextroconvex thoracic spinal curvature. IMPRESSION: No acute finding in the chest. Chronic asymmetric elevation right hemidiaphragm. Calcified atherosclerosis. Lab Results Last 24 Hours: 08/22/24 08/21/24 05:04 13:31 WBC 7.37 RBC 3.67 L Hgb 10.9 L Hct 35.7 L MCV 97.3 MCH 29.7 MCHC 30.5 L RDW Coeff of Maren 13.6 Plt Count 169 Immature Gran % (Auto) 0.1 Neut % (Auto) 60.9 Lymph % (Auto) 31.2 [place] % (Auto) 6.6 Eos % (Auto) 1.1 Baso % (Auto) 0.1 Neut # (Auto) 4.5 Lymph # (Auto) 2.3 [place] # (Auto) 0.5 Eos # (Auto) 0.1 Baso # (Auto) 0.0 Immature Gran # (Auto) 0.0 Sodium 138.7 Potassium 5.08 Chloride 109.4 H Carbon Dioxide 25.4 Anion Gap 8.98 BUN 21.1 H Creatinine 0.98 Estimated GFR (MDRD) 56.00 BUN/Creatinine Ratio 21.53 Glucose 160.2 H Lactic Acid 2.11 H Calcium 8.69 Total Bilirubin 0.13 L AST 21.5 ALT 18.2 Alkaline Phosphatase 118.6 Total Protein 5.69 L Albumin 2.90 L Globulin 2.79 Albumin/Globulin Ratio 1.03 Discharge Instructions Discharge Planning: Discharge Planning > [address] George Murrieta. Discharge Medications: Medications at Discharge (Home Meds & RX) Discharge Plan Discharge Discharge Orders: Discharge Patient (ONCE); Ordered 08/22/24 Ordered By: JOSE GUADALUPE BAKER Activity Restrictions/Additional Instructions: DISCHARGE TO HOME DIAGNOSIS: HYPOTENSION, REMY, DEHYDRATION, RHINOVIRUS CUT YOUR HYDROCHLOROTHIAZIDE (HCTZ) IN HALF AND MONITOR BLOOD PRESSURE IF BLOOD PRESSURE CONTINUES TO BE >130 SYSTOLIC, TAKE THE FULL TAB NORMAL OTHERWISE TAKE ALL OTHER MEDICATIONS USUAL F/U WITH PCP SCHEDULED OR SOONER IF NEEDED YOU HAVE AN APPT WITH ALICJA TUCKER ON AT 11:30 a.m. Instructions: Hypotension (GEN) Care Plan Goals: Problem: Low blood pressure Goal: Medically managed blood pressure Instructions: Monitor blood pressure as needed Monitor for signs/symptoms of low blood pressure Review medication related to blood pressure Patient Disposition: HOME SELF-CARE Prescriptions: Continued albuterol sulfate 90 mcg/actuation HFA aerosol inhaler 2 puff PO Q4-6H PRN (Reason: for wheezing) Qty: 9 5RF gabapentin 800 mg tablet 800 mg PO TID PRN (Reason: neuropathy) metformin 1,000 mg tablet See Rx Instructions .ROUTE .COMPLEX Qty: 180 0RF Dose Instruction: Take 1 tablet by mouth twice daily Rx Instructions: Take 1 tablet by mouth twice daily- ergocalciferol (vitamin D2) [Vitamin D2] 1,250 mcg (50,000 unit) capsule 1,250 mcg PO QWEEK 90 Days Qty: 13 2RF Invokana 300 mg tablet 300 mg PO QAM Qty: 90 1RF atenolol 100 mg tablet See Rx Instructions .ROUTE .COMPLEX Qty: 90 1RF Dose Instruction: Take 1 tablet by mouth once daily Rx Instructions: Take 1 tablet by mouth once daily atorvastatin 80 mg tablet See Rx Instructions .ROUTE .COMPLEX Qty: 90 1RF Dose Instruction: Take 1 tablet by mouth once daily Rx Instructions: Take 1 tablet by mouth once daily- citalopram 20 mg tablet See Rx Instructions .ROUTE .COMPLEX Qty: 90 1RF Dose Instruction: Take 1 tablet by mouth once daily Rx Instructions: Take 1 tablet by mouth once daily clopidogrel 75 mg tablet See Rx Instructions .ROUTE .COMPLEX Qty: 90 1RF Dose Instruction: Take 1 tablet by mouth once daily Rx Instructions: Take 1 tablet by mouth once daily lisinopril 20 mg tablet 20 mg PO QDAY Qty: 90 1RF semaglutide 14 mg tablet 14 mg PO QDAY Qty: 90 1RF Breztri Aerosphere 160-9-4.8 mcg/actuation HFA aerosol inhaler 2 inh inhalation BID Qty: 10.7 5RF Changed hydrochlorothiazide 25 mg tablet See Rx Instructions .ROUTE .COMPLEX Qty: 90 1RF Dose Instruction: Take 1 tablet by mouth once daily Rx Instructions: Take 1/2 tablet by mouth once daily No Action (DME) blood-glucose meter [OneTouch Ultra2 Meter] Misc See Rx Instructions .ROUTE Qty: 1 0RF Rx Instructions: As directed for dm2. E11.65 uncontrolled dm2 (DME) OneTouch Ultra Test Strip See Rx Instructions .ROUTE Qty: 100 5RF Rx Instructions: As directed to check bg bid for uncontrolled dm2 E11.65 (DME) lancets [OneTouch UltraSoft 2 Lancet] 30 gauge misc See Rx Instructions .ROUTE Qty: 100 5RF Rx Instructions: to check bg bid for uncontrolled dm2 E11.65 (DME) lancets Misc See Rx Instructions .ROUTE .MEDSUPPLY Qty: 100 1RF Rx Instructions: Monitor blood sugar twice a day Did you review [place] for [place] controlled substances?: Not Applicable Discussed opioids are addictive and Narcan is available by prescription or from pharmacy.: No Condition: Stable Referrals: ALICJA TUCKER APRN,FNPBC [Primary Care Provider] - 09/05/24 11:30 am
[2024-08-22 09:57] VITALS: BP 145/62; PULSE 78; RESP 18; TEMP 97
== END 2024-08-22 10:55 | disposition home or self-care (01) ==
LOC: ED 12:18 → MEDSURG B 12:18
PROVIDERS: ADMIT Hospitalist; ATTEND Physician Assistant
DX: R42 Dizziness and giddiness; I95.1 Orthostatic hypotension; Z95.5 Presence of coronary angioplasty implant and graft; E87.20 Acidosis, unspecified; J44.9 Chronic obstructive pulmonary disease, unspecified; Z20.822 Contact with and (suspected) exposure to COVID-19; B34.8 Other viral infections of unspecified site; I10 Essential (primary) hypertension; Z79.4 Long term (current) use of insulin; Z79.899 Other long term (current) drug therapy; E86.0 Dehydration; E11.65 Type 2 diabetes mellitus with hyperglycemia; E78.5 Hyperlipidemia, unspecified; Z51.81 Encounter for therapeutic drug level monitoring; Z79.84 Long term (current) use of oral hypoglycemic drugs; N17.9 Acute kidney failure, unspecified